=== PATIENT | female | born 1995 | race Caucasian/White ===

== ENCOUNTER 2017-07-22 19:40 | Emergency (ER) | payer BC ==
[2017-07-22 20:37] VITALS: BP 118/72
[2017-07-22] MEDS ORDERED: Meclizine TAB* 12.5 MG PO ONE (21:07)
--- NOTE | 2017-07-22 21:17 | UC ---
General HPI - HPI Summary HPI Summary: She says she had a headache but it is much better now. she still has vertigo for the last two days. she has worsening with rolling over in bed or changes in position. no tinnitus or hearing loss. no ear pain or congestion. Mother has vertigo and grandfather did as well. - History of Current Complaint Chief Complaint: UCGeneralIllness Stated Complaint: HEADACHE Time Seen by Provider: 07/22/17 20:36 Hx Last Menstrual Period: 07/08/17 Onset/Duration: Gradual Onset, Lasting Days Timing: Constant Onset Severity: Moderate Current Severity: Moderate Associated Signs & Symptoms: Positive: Dizziness, Headache. Negative: Diarrhea , Dysuria, Decreased Oral Intake, Diaphoresis, Edema, Fever, Nausea, Palpitations, Vomiting, Wheezing, Weakness - Allergy/Home Medications Allergies/Adverse Reactions: Allergies Allergy/AdvReac Type Severity Reaction Status Date / Time No Known Allergies Allergy Verified 07/22/17 20:37 Home Medications: Home Medications Norethin Acet & Estrad-Fe [Minastrin 24 Fe 1-20 mg-Mcg(24)] 1 chw PO DAILY 07/22 [History Confirmed 07/22/17] PMH/Surg Hx/FS Hx/Imm Hx Previously Healthy: No - Surgical History Surgical History: None - Family History Known Family History: Positive: Other - vertigo - Social History Occupation: Student Alcohol Use: Rare Substance Use Type: None Smoking Status (MU): Never Smoked Tobacco Review of Systems Neurological: Headache, Other - vertigo All Other Systems Reviewed And Are Negative: Yes Physical Exam Triage Information Reviewed: Yes Appearance: Well-Appearing, No Pain Distress, Well-Nourished Vital Signs: Initial Vital Signs Temp 99.0 F 07/22/17 20:33 Pulse 102 07/22/17 20:33 Resp 16 07/22/17 20:33 BP 118/72 07/22/17 20:33 Pulse Ox 99 07/22/17 20:33 Vital Signs Reviewed: Yes Eye Exam: Normal, Other - no nystagmus. ENT Exam: Normal ENT: Positive: TMs normal. Negative: Tonsillar swelling, Tonsillar exudate, Trismus, Muffled/hoarse voice Neck exam: Normal Neck: Positive: Supple, Nontender, No Lymphadenopathy Respiratory Exam: Normal Cardiovascular Exam: Normal Abdominal Exam: Normal Musculoskeletal Exam: Normal Neurological Exam: Normal Neurological: Positive: Alert, Muscle Tone Normal, Other: - CN III-XII intact. no nystagmus. neg pronator drift. finger to nose and heel to gómez intact. neg rhomberg. she walks with narrow based gait. Psychological Exam: Normal Skin Exam: Normal Course/Dx - Course Course Of Treatment: she agrees to f/u with ENT if symptoms persists or recurr for further testing and possible imaging. - Differential Dx - Multi-Symptom Provider Diagnoses: vertigo Discharge - Discharge Plan Condition: Good Disposition: HOME Prescriptions: Meclizine HCl [Meclizine 25] 25 mg PO TID #20 tab Patient Education Materials: Vertigo (ED) Referrals: Alonso Altman MD [Medical Doctor] - Additional Instructions: follow up with ENT if needed such as if this does not resolve in a few day or if this becomes a recurrant problem.
== END 2017-07-22 21:20 | disposition home or self-care (01) ==
LOC: UCCORT 19:40
DX: R42 Dizziness and giddiness (principal)
CPT/HCPCS: 99202; A9270-GY; G0463

== ENCOUNTER 2017-09-23 17:08 | Emergency (ER) | payer BC ==
[2017-09-23 17:21] VITALS: BP 124/76
--- NOTE | 2017-09-23 17:21 | UC ---
Head Injury HPI - HPI Summary HPI Summary: 22 year old female presents with complains of severe headache, syncopal episode , and head injury secondary to a fall. - History Of Current Complaint Stated Complaint: HEADACHE, DIZZINESS Time Seen by Provider: 09/23/17 17:18 Hx Obtained From: Patient Hx Last Menstrual Period: 07/08/17 Onset/Duration: Sudden Onset Severity Currently: Moderate Severity Initially: Moderate Aggravating Factor(s): Unknown Alleviating Factor(s): Nothing Associated Signs And Symptoms: Positive: Neck Pain - Allergies/Home Medications Allergies/Adverse Reactions: Allergies Allergy/AdvReac Type Severity Reaction Status Date / Time No Known Allergies Allergy Verified 09/23/17 17:20 PMH/Surg Hx/FS Hx/Imm Hx Previously Healthy: Yes - Surgical History Surgical History: None - Family History Known Family History: Positive: Other - vertigo - Social History Alcohol Use: Rare Substance Use Type: None Smoking Status (MU): Never Smoked Tobacco Review of Systems Constitutional: Negative Skin: Negative Eyes: Negative ENT: Negative Respiratory: Negative Cardiovascular: Negative Gastrointestinal: Negative Genitourinary: Negative Motor: Negative Neurovascular: Negative Musculoskeletal: Negative Neurological: Headache, Weakness Psychological: Negative All Other Systems Reviewed And Are Negative: Yes Physical Exam Triage Information Reviewed: Yes Appearance: Ill-Appearing Vital Signs Reviewed: Yes Eye Exam: Normal ENT Exam: Normal Dental Exam: Normal Neck exam: Normal Neck: Positive: 1 Respiratory Exam: Normal Cardiovascular Exam: Normal Abdominal Exam: Normal Musculoskeletal Exam: Normal Neurological Exam: Normal Psychological Exam: Normal Skin Exam: Normal Head Injury Course/Dx - Differential Dx/Diagnosis Provider Diagnoses: syncope. severe headache Discharge - Discharge Plan Condition: Stable Disposition: OTHER Discharge Disposition Comment: patient suggested to go to the er Patient Education Materials: Syncope (ED), Head Injury (ED) Referrals: Non Staff,Doctor [Primary Care Provider] - Additional Instructions: patient asuggested to go to er for worse headache of her life.
== END 2017-09-23 17:28 ==
LOC: UCCORT 17:08
DX: R55 Syncope and collapse (principal); R51 Headache
CPT/HCPCS: 99212; G0463

== ENCOUNTER 2018-09-03 15:00 | Emergency (ER) | payer BC ==
[2018-09-03 16:30] VITALS: BP 128/64
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
== END 2018-09-03 17:09 | disposition home or self-care (01) ==
LOC: UCCORT 15:00
DX: L73.9 Follicular disorder, unspecified (principal)
CPT/HCPCS: 99212; G0463